=== PATIENT | male | born 1960 ===

== ENCOUNTER 2021-10-24 06:55 | Day surgery (SDC) | payer OTHER ==
[~2021-10-24 06:55] MED LIST: ELIGARD22.5 MG; INVOKANA300 MG
== END 2021-10-24 16:25 | disposition home or self-care (01) ==
LOC: CIR.AMB 06:55
PROVIDERS: ATTEND Colon & Rectal Surgery
DX: D12.8 Benign neoplasm of rectum (principal); K62.82 Dysplasia of anus; Z20.822 Contact with and (suspected) exposure to COVID-19